=== PATIENT | female | born 1980 | race Hispanic/Latino ===

== ENCOUNTER 2019-08-12 15:06 | Outpatient (CLI) | payer MEDICAID ==
--- NOTE | 2019-08-12 17:26 | ULT ---
OB ULTRASOUND: History: Size and dates FINDINGS: A single live intrauterine gestation is seen with measurements corresponding to an estimated gestatio nal age of 20 weeks 1 day and YULIANA of 12-29-2018. The estimated weight measures 341 grams . measurements are as follows: BDP 4.63 cm 20 weeks 0 days HC 17.8 cm 20 weeks 1 days AC 15.3 cm 20 weeks 3 days FL 3.31 cm 20 weeks 2 days heart: 146 beats/minute. LYLY measures 13.2 cm. Placenta is anterior fundus without placenta pre via. A three vessel cord, cord insertion, kidneys, bladder, stomach, four chamber heart, ventricles, spine, lips, nose, and lower extremities visualized. No definite anomalies are seen. IMPRESSION: Single live IUP of 20 weeks 1 day estimated gestational age and YULIANA of 12-29-2018. POS: OFF
== END 2019-08-12 15:07 | disposition home or self-care (01) ==
LOC: NAV ULT 15:06
PROVIDERS: ATTEND Family Medicine
DX: O09.522 Supervision of elderly multigravida, second trimester (principal); Z3A.20 20 weeks gestation of pregnancy
CPT/HCPCS: 76805